=== PATIENT | male | born 1960 | race Caucasian/White ===

== ENCOUNTER 2022-11-11 09:19 | Outpatient (OUT) | payer OTHER, SELFPAY ==
--- NOTE | 2022-11-11 09:20 | XR_ITS ---
The [address] [address] Patient Name: FREDDY LARKIN MRN: [id number] date: 1960 Sex: M Assigned Patient Location: [facility] Current Patient Location: [facility] Accession/Order Number: [id number] Exam Date: 11/11/2022 09:20 Report Date: 11/11/2022 13:03 At the request of: ELSY JENSEN Procedure: XR foot LT min 3V PROCEDURE: XR foot LT min 3V HISTORY: LEFT FOOT PAIN ; third toe pain after kicking bedframe COMPARISON: None. FINDINGS: BONES:No fracture, acute abnormality, or significant arthropathy. SOFT TISSUES:No visible soft tissue swelling. EFFUSION:None visible. OTHER: Negative. XR/XR foot LT min 3V IMPRESSION: 1. No acute bone abnormality or suspicious findings. Electronically authenticated by: HUNTER SMILEY Date: 11/11/2022 13:03
== END 2022-11-11 09:20 | disposition home or self-care (01) ==
LOC: RAD 09:20
PROVIDERS: Visit Provider Physician Assistant
DX: M79.672 Pain in left foot (principal)
CPT/HCPCS: 73630

== ENCOUNTER 2022-12-03 12:53 | Outpatient (OUT) | payer OTHER, SELFPAY ==
--- NOTE | 2022-12-03 | XR_ITS ---
The [address] [address] Patient Name: FREDDY LARKIN MRN: [id number] date: 1960 Sex: M Assigned Patient Location: [facility] Current Patient Location: [facility] Accession/Order Number: [id number] Exam Date: 12/03/2022 13:15 Report Date: 12/04/2022 07:14 At the request of: ELSY JENSEN Procedure: XR foot LT min 3V PROCEDURE: XR foot LT min 3V COMPARISON: 11/11/2022 HISTORY: LEFT FOOT PAIN FINDINGS: BONES:Increased lucency identified along the medial head of the fifth proximal phalanx likely representing a subacute fracture in the lytic phase of healing. No dislocation. Mild enthesopathic spurring plantar calcaneus. SOFT TISSUES:Negative. No visible soft tissue swelling. EFFUSION:None visible. OTHER: Negative. XR/XR foot LT min 3V IMPRESSION: Subacute healing intra-articular fracture medial head of the proximal phalanx Electronically authenticated by: BRANDON PEREZ Date: 12/04/2022 07:14
== END 2022-12-03 12:54 | disposition home or self-care (01) ==
LOC: RAD 12:53
PROVIDERS: Visit Provider Physician Assistant
DX: M79.672 Pain in left foot (principal)
CPT/HCPCS: 73630